=== PATIENT | male | born 1950 | race Caucasian/White ===

== ENCOUNTER → 2017-01-12 | Outpatient (CLI) | payer MEDICARE ==
--- NOTE | 2017-01-12 12:58 | RAD ---
EXAM DESCRIPTION: Hand,Left 3 Views CLINICAL HISTORY: PAIN IN LT HAND COMPARISON: None. TECHNIQUE: 3 views left FINDINGS: I see no bone joint or soft tissue abnormality. IMPRESSION: Normal left hand. Electronically signed by: Aleksey Gates MD 01/12/2017 12:57 PM CDT
== END ==
LOC: RAD 08:19
PROVIDERS: ATTEND Orthopaedic Surgery
DX: M79.642 Pain in left hand (principal)

== ENCOUNTER 2017-01-18 05:43 | Day surgery (SDC) | payer MEDICARE ==
[~2017-01-18 05:43] MED LIST: LACTATED RINGERS 1,000 ML ONE; SODIUM CHL 0.9% 100ML MINI-BAG 100 ML IVPB ONE; ceFAZolin SODIUM 1 GM VIAL ONE
[2017-01-18] MEDS ORDERED: LIDOCAINE 1% 10 ML VIAL INJ ONE (07:00)
[2017-01-18] MEDS ORDERED: PROPOFOL 200 MG/20 ML VIAL IV ONE (07:00)
[2017-01-18] MEDS ORDERED: BUPIVACAINE 0.25% INJ 30 ML VIAL INJ ONE (07:21)
[2017-01-18] MEDS ORDERED: ceFAZolin SODIUM 1 GM VIAL ONE (07:21)
[2017-01-18] MEDS ORDERED: LIDOCAINE 1% 50 ML VIAL INJ ONE (07:21)
[2017-01-18] MEDS ORDERED: VANCOMYCIN HCL INJ 1,000 MG VIAL IVPB ONE (07:21)
[2017-01-18] MEDS ORDERED: fentaNYL CITRATE INJ 50 MCG/ML AMP ONE (08:02)
[2017-01-18] MEDS ORDERED: MIDAZOLAM INJ 5 MG/5 ML VIAL ONE (08:02)
[2017-01-18] MEDS ORDERED: HYDROcodone 5MG/APAP 325MG 1 EA TAB PO ONE (08:55)
--- NOTE | 2017-01-18 09:49 | OP ---
DATE OF PROCEDURE: 01/18/17 PREOPERATIVE DIAGNOSIS: 1. Trigger finger, left third digit. POSTOPERATIVE DIAGNOSIS: 1. Trigger finger, left third digit. PROCEDURE: 1. A1 laila release. SURGEON: Skip Mendoza MD. DIRECTOR DAY CARE CENTER: Ravinder Herrera CST, SA-C. ANESTHESIA: Local with sedation. COMPLICATIONS: None. FINDINGS: Triggering at the A1 laila. PROCEDURE: The patient was brought to the Operating Room and placed in the supine position. Sedation was administered and local anesthetic was injected into the operative area. Following infection, the arm was sterilely prepped and draped. A transverse incision was made directly overlying the A1 laila of the triggering digit and blunt dissection was carried down to the laila while protecting the digital nerves. After identification of the laila, the laila was transected and a [place] elevator was passed both proximally and distally to ensure complete release. The finger was flexed and extended and there was no evidence of locking or clicking. The wound was thoroughly irrigated and closed with Nylon suture. A sterile dressing was placed and the patient was taken to the Day Surgery Unit. POSTOPERATIVE INSTRUCTIONS: The patient has been encouraged to do range of motion of the digits and will followup with us in two days. #[id number] [facility]
[2017-01-18 12:52] VITALS: BP 145/88; TEMP 97.1; O2SAT 99
== END 2017-01-18 09:55 | disposition home or self-care (01) ==
LOC: AMB 05:43
PROVIDERS: ATTEND Orthopaedic Surgery
DX: M65.332 Trigger finger, left middle finger (principal); I10 Essential (primary) hypertension; E11.9 Type 2 diabetes mellitus without complications; K21.9 Gastro-esophageal reflux disease without esophagitis; Z88.2 Allergy status to sulfonamides; Z88.0 Allergy status to penicillin; Z79.82 Long term (current) use of aspirin; Z79.4 Long term (current) use of insulin; Z79.899 Other long term (current) drug therapy
CPT/HCPCS: 01810; 26055; 36416; 82948; 87070; J0690; J2250; J3010; J3370; J3490; J7050; J7120

== ENCOUNTER → 2017-07-17 | Outpatient (CLI) | payer OTHER ==
--- NOTE | 2017-07-17 20:48 | CT ---
EXAM DESCRIPTION: Abdomen/Pelvis w/Contrast: Computed Tomography. CLINICAL HISTORY: URINARY OBSTRUCTION W/ ASSOCIATED LOW BACK PAIN COMPARISON: None. TECHNIQUE: Spiral-axial scans at 5.0 mm intervals through the abdomen and pelvis, after IV contrast. Coronal and sagittal 2.0mm reconstructions. No oral contrast. No adverse reactions. Total Exam DLP: 844.24 mGy-cm. This exam was performed according to our departmental CT dose-optimization program which includes automated exposure control, adjustment of the mA and/or kV according to patient size and/or use of iterative reconstruction technique; to reduce radiation dose to as low as reasonably achievable (ALARA). FINDINGS: Kidneys and Ureters: Bilateral trace hydronephrosis. No large radiodense stones in the collecting systems bilaterally. Minimal cortical thinning inferior pole of the right kidney. Minimal perinephric stranding bilaterally. No radiodense ureteral stones, hydroureter, or periureteral stranding. Pelvic Organs: No mass effect on the bilateral UVJs. Minimal mass effect of the prostate gland on the base of the urinary bladder which is not well distended. No fluid in the anterior peritoneal reflection. No enlarged pelvic nodes. Minimal distention of the rectum by gas. Lung and pleura bases: Minimal scarring left base. No pleural effusion. Liver, spleen, stomach, and adrenal glands: Stomach unremarkable. Solid organs are negative. Pancreas, Gallbladder, Ducts: Normal chest size and enhancement of these pancreas. Surgical clips in the gallbladder fossa with no fluid. Duct unremarkable. Aorta: Minimal ectasia and calcification. Extends into the common iliac arteries. Small Bowel: Unremarkable. Terminal Ileum/Cecum: Normal caliber of the structures and the appendix. Normal density of the surrounding fat Colon: Minimal redundancy of the hepatic flexure, splenic flexure, and sigmoid. Minimal sigmoid diverticula but no complications. Mesentery: Pararenal stranding only. No free air or free fluid. Spine and Bony Pelvis: Advanced spondylosis L2-3 and L4-5 with Schmorl's nodes especially inferior L4 endplate. There is a broad-based disc protrusion at this level with mild canal stenosis. Moderate narrowing right foramen with possible stenosis left foramen. Left L4 pars spondylolysis. Trace retrolisthesis. Posterior L2-3 disc bulge and trace retrolisthesis. Canal and bilateral foraminal narrowing. Mid central L2 vertebral body hemangioma. Mild disc bulge L3-4. Abdominal Wall/Back Soft Tissues: Minimal diastases at the umbilicus but no hernia. Bilateral fatty inguinal hernias larger on the left but not involving bowel. IMPRESSION: 1. Borderline hydronephrosis bilaterally, bilateral prominent renal pelves but no radiodense stones in the kidneys or ureters. Bilateral perinephric stranding in the pararenal space may be physiologic. 2. Urinary bladder not distended with wall thickening, no radiodense stones. Minimal impression on the base by the prostate gland. No mass effect on the bilateral UVJs. 3. Spondylosis, disc space loss, and trace retrolisthesis at L2-3 and L4-5. Significant Schmorl's nodes inferior L4 endplate. Posterior protrusion L4-5 with moderate canal stenosis and possible left foraminal stenosis. Left L4 pars spondylolysis. 4. The findings were discussed directly by phone with Dr. Garay at approximately 840 hours on July 17, 2017. Electronically signed by: Ravinder Garza MD 07/17/2017 8:47 PM [employer]ER [employer]PPORT [employer]LYST Workstation: [id number]
== END | disposition home or self-care (01) ==
LOC: CT 14:16
PROVIDERS: ATTEND General Practice
DX: N13.9 Obstructive and reflux uropathy, unspecified (principal)